=== PATIENT | male | born 1965 | race American Indian/Alaskan Native ===

== ENCOUNTER 2021-05-17 06:42 | Day surgery (SDC) | payer OTHER ==
[~2021-05-17 06:42] MED LIST: SODIUM CHLORIDE 0.9% IRR 1,500 ML BOTTLE IR ONE; ceFAZolin/STERILE WATER 2 GM/20 ML SYRINGE IV NR
[2021-05-17] MEDS ORDERED: MIDAZOLAM 2 MG/2 ML INJ IV ONE (06:54)
[2021-05-17] MEDS ORDERED: LACTATED RINGERS 1,000 ML IV SCH (07:00)
[2021-05-17] MEDS ORDERED: BACTERIOSTATIC SODIUM CHLORIDE 0.9% 30 ML VIAL INFILTRATI ONE (07:22)
[2021-05-17] MEDS ORDERED: ONDANSETRON 4 MG/2 ML INJ IV PRN (07:24)
[2021-05-17] MEDS ORDERED: HYDROmorphone 1 MG/1 ML INJ IV PRN (07:24)
[2021-05-17] MEDS ORDERED: ONDANSETRON 4 MG/2 ML INJ ONE (07:24)
[2021-05-17] MEDS ORDERED: LIDOCAINE MPF (2%) 20 MG/1 ML VIAL 5 ML ONE (07:24)
[2021-05-17] MEDS ORDERED: fentaNYL 100 MCG/2 ML INJ ONE (07:25)
[2021-05-17] MEDS ORDERED: propofoL 200 MG/20 ML VIAL IV ONE (07:25)
--- NOTE | 2021-05-17 07:25 | Anesthesia Day of Surgery ---
Anesthesia Day of Surgery - Day of Surgery Patient Examined: Yes Patient H&P Reviewed: Yes Patient is NPO: Yes
--- NOTE | 2021-05-17 07:26 | Anesthesia Consultation ---
Anesthesia Consult and Med Hx Date of service: 05/17/21 - Airway Anesthetic Teeth Evaluation: Partials ROM Head & Neck: Adequate Mental/Hyoid Distance: Adequate Mallampati Class: Class II Intubation Access Assessment: Good - Pre-Operative Health Status ASA Pre-Surgery Classification: ASA2 Proposed Anesthetic Plan: General - Pulmonary Hx Smoking: No Hx Respiratory Symptoms: No (Had left partial lobectomy for recurrent PTX) SOB: No (+2FS) Hx Sleep Apnea: No (KEYSHAWN PRE SCREEN HIGH RISK) - Cardiovascular System Hx Hypertension: Yes (X 30 YRS) - Central Nervous System Hx Seizures: Yes ( CHILD AND TEEN- LAST SEIZURE AT AGE 17YR/ NO MEDS) Hx Psychiatric Problems: No - Endocrine Hx Non-Insulin Dependent Diabetes: Yes (Diet-controlled) - Hematic Hx Anemia: No - Other Systems Hx Cancer: No Hx Obesity: No
[2021-05-17] MEDS ORDERED: dexAMETHasone 20 MG/5 ML VIAL ONE (08:36)
[2021-05-17] MEDS ORDERED: KETOROLAC 30 MG/1 ML INJ ONE (08:54)
--- NOTE | 2021-05-17 08:59 | Short Stay Summary ---
Short Stay Documentation Date of service: 05/17/21 - History H&P: obtained from office - Allergies and Medications Current Medications: Allergies Sulfa (Sulfonamide Antibiotics) Allergy (Verified 05/03/21 17:29) Hives Home Medications Medication Instructions Recorded Confirmed Last Taken Type AtorvaSTATin [Lipitor] 20 mg PO QHS 05/03/21 05/03/21 Unknown History Ibuprofen [Motrin Ib] 200 mg PO PRN PRN 05/03/21 05/03/21 Unknown History Losartan [Cozaar] 50 mg PO QHS 05/03/21 05/03/21 Unknown History amLODIPine [Norvasc] 10 mg PO QHS 05/03/21 05/03/21 Unknown History Active Medications Cefazolin Sodium (Cefazolin/Sterile Water 2 Gm/20 Ml Syringe) 2 gm IV PREOP NR Stop: 05/17/21 20:00 Hydromorphone HCl (Hydromorphone 1 Mg/1 Ml Inj) 0.25 mg IV Q10MIN PRN PRN Reason: Pain, Moderate (4-6) Stop: 05/17/21 23:00 Hydromorphone HCl (Hydromorphone 1 Mg/1 Ml Inj) 0.5 mg IV Q10MIN PRN PRN Reason: Pain , Severe (7-10) Stop: 05/17/21 23:00 Lactated Ringer's (Lactated Ringers) 1,000 mls @ 100 mls/hr IV DIRECT DARIUSZ Ondansetron HCl (Ondansetron 4 Mg/2 Ml Inj) 4 mg IV ONCE PRN PRN Reason: Nausea And Vomiting Stop: 05/17/21 12:00 - Brief post op/procedure progress note Date of procedure: 05/17/21 Pre-op diagnosis: phimosis Post-op diagnosis: same Procedure: circ Anesthesia: GETA Surgeon: TERRY JEAN Estimated blood loss: minimal Pathology: list (foreskin) Specimen disposition: to lab Condition: stable - Hospital course Hospital course: tyler on chart - Disposition Condition at discharge: Stable Disposition: DC-01 TO HOME OR SELFCARE Short Stay Discharge Plan Follow up with: TERA ARMANDO MD [Primary Care Provider] - 7 Days
[2021-05-17] MEDS ORDERED: SODIUM CHLORIDE 0.9% IRR 1,500 ML BOTTLE IR ONE (09:00)
[2021-05-17] MEDS ORDERED: LACTATED RINGERS 1,000 ML ONE (09:01)
[2021-05-17] MEDS: HYDROmorphone 1 MG/1 ML INJ IV PRN ×2 (09:10→09:20)
[2021-05-17 09:59] VITALS: BP 130/81
--- NOTE | 2021-05-17 10:09 | Operative Report ---
DATE OF SURGERY: 05/17/2021 PREOPERATIVE DIAGNOSIS: Phimosis. POSTOPERATIVE DIAGNOSIS: Phimosis. PROCEDURE: Circumcision. SURGEON: Hamilton Crawley MD ANESTHESIA: General. ESTIMATED BLOOD LOSS: Minimal. FLUIDS: Crystalloid. COMPLICATIONS: No complications. INDICATIONS: This 56-year-old gentleman seen in the office for tearing and irritation of his foreskin. Exam was consistent with phimosis. Risks, benefits and complications were explained. The patient agreed to proceed with surgical intervention. His primary care physician is Dr. Dinorah Lara. DESCRIPTION OF PROCEDURE: The patient was taken to the operative suite, placed in the supine position. After adequate general anesthesia, he was prepped and draped in a sterile fashion. Dorsal slit and ventral slit was made with Huseyin. Foreskin was marked at the coronal ridge and then circumferentially removed. Foreskin was sent for routine pathologic evaluation. Shaft skin was retracted proximally. Adequate hemostasis was achieved. The proximal and distal shaft skin was reapproximated and closed with 2-0 chromic in an interrupted fashion. Xeroform gauze was placed around the incision as well as Deniz and then Coban wrap. The patient tolerated the procedure well, was extubated and taken to the recovery room. He will go home [place] and follow up in the office. TID: [id number] RECEIPT: [id number] DALI/MARISOL/WINIFRED
--- NOTE | 2021-05-17 17:04 | Post Anesthesia Evaluation ---
- Post Anesthesia Evaluation Patient Participated: Yes Airway Patent: Yes Stable Respiratory Function: Yes Nausea/Vomiting: No Temp > 96.8F: Yes Pain Manageable: Yes Adequeate Hydration: Yes Anesthesia Complications: No Block Receding Appropriately: Not Applicable Patient on Ventilator: No
== END 2021-05-17 10:30 | disposition home or self-care (01) ==
LOC: OR 06:42
PROVIDERS: ATTEND Urology
DX: N47.1 Phimosis (principal); E78.00 Pure hypercholesterolemia, unspecified; I10 Essential (primary) hypertension; E11.9 Type 2 diabetes mellitus without complications; Z79.899 Other long term (current) drug therapy; Z88.2 Allergy status to sulfonamides; Z98.49 Cataract extraction status, unspecified eye; Z98.890 Other specified postprocedural states; Z86.2 Personal history of diseases of the blood and blood-forming organs and certain disorders involving the immune mechanism
CPT/HCPCS: 54161; 82962; 88304; J0690; J1100; J1170; J1885; J2250; J2405; J2704; J3010; J7120